=== PATIENT | female | born 1960 | race Caucasian/White ===

== ENCOUNTER 2020-09-19 11:14 | Emergency (ER) | payer OTHER ==
[2020-09-19] MEDS ORDERED: AUGMENTIN 875-1 EACH PO (14:39)
== END 2020-09-19 15:30 | disposition home or self-care (01) ==
LOC: FER 11:14
DX: S61.452A Open bite of left hand, initial encounter (principal); S61.412A Laceration without foreign body of left hand, initial encounter; S70.11XA Contusion of right thigh, initial encounter; I10 Essential (primary) hypertension; Z23 Encounter for immunization; W54.0XXA Bitten by dog, initial encounter; Y92.89 Other specified places as the place of occurrence of the external cause; Y99.0 Civilian activity done for income or pay
CPT/HCPCS: 73130; 90471; 90715